=== PATIENT | female | born 1965 | race Caucasian/White ===

== ENCOUNTER → 2021-05-01 10:46 | Outpatient (POV) | payer MEDICARE, SELFPAY ==
[2021-05-01 11:29] VITALS: BP 136/105; PULSE 125; RESP 18; O2SAT 96; BMI 27.3
--- NOTE | 2021-05-02 07:32 | [facility].PMCON ---
Assessment and Plan (1) Degenerative joint disease (DJD) of lumbar spine Status: Chronic Category: Medical Code(s): M47.816 - Spondylosis without myelopathy or radiculopathy, lumbar region (2) Lumbar radiculopathy Status: Chronic Category: Medical Code(s): M54.16 - Radiculopathy, lumbar region - Assessment and plan all Dx Assessment and Plan for all problems:: We will schedule the patient for a lumbar epidural steroid injection at L4-L5. She is not on any anticoagulation therapy. She has tried and failed conservative therapies of physical therapy in the past along with continued home stretching. We will increase the patient's tramadol to 50 mg 2 tablets p.o. twice daily. We will also start her on tizanidine 4 mg 1 tablet p.o. twice daily as needed muscle spasms for 1 month only. Patient says she has tried tizanidine in the past which is given her relief. We will give her the medication until she is able to have her injection. We will not continue with larry Ramos after her injection. She does feel she is having spasms in her low back area. Her pain is radicular in nature into the right hip and right knee. Ice and heat therapies have not been beneficial for the pain. She will continue with anti-inflammatories along with her prescribed medications. We will see her back in the clinic after her injection for reevaluation of symptoms. Risks and benefits of the medication have been explained in detail to the patient. The patient has been advised to consult with his/her primary care provider and pharmacist regarding drug-drug interaction of medications currently prescribed. Risks and benefits of the procedure have been explained to the patient. Patient would like to proceed with the procedure. Possible side effects of corticosteroids have been discussed with the patient. Patient has been instructed to contact the clinic with any concerns before the next appointment. Dr. Anguiano has reviewed this note and agrees with this plan of care. This note was dictated using voice recognition software and make contain errors or omissions. Patient has been prescribed a controlled substance after being counseled on the medication, medication safety, and possible side effects. EVE report has been obtained and reviewed prior to prescription and found to be appropriate. Opioid contract was reviewed and signed by the patient, and that they have agreed to all of the terms set forth by our compliance program. HPI - Data of Consult Patient: new to practice Consult date: 05/01/21 Requesting Physician: Geovanna Gipson APRN Primary Care Provider: Curtis Porter - Consult Narrative Reason for consult: Low back pain, right hip pain History of present illness: Ms. Lew is a 55 year old female who presents today for consultation for chronic low back pain and right hip pain. Patient was referred to us by Dr. Porter. Patient says that she is having severe low back pain that is radicular to her right hip and right knee.. This pain has been ongoing for greater than 6 months. She denies any trauma or injury. She denies any saddle anesthesia or changes in bowel or bladder habit. Patient says that she is having difficulty sitting, standing, sleeping. She says that she is unable to lie down due to the pain. The pain is constant. She also has difficulty bending. She says that she has previously tried physical therapy for greater than 6 weeks, continues with home stretching, and has tried anti-inflammatories in the past. She does not get any significant relief. She is currently on tramadol 50 mg 1 tablet p.o. twice daily and gabapentin 600 mg 1 tablet p.o. 3 times daily. She denies any side effects to these medications. We did discuss increasing the medication to see if this helps. She is also previously taken muscle relaxers that have given her relief. We discussed adding on a muscle relaxer that she can take as needed. She has been advised agains
--- NOTE | 2021-05-22 11:18 | PC.NURSE ---
Left voicemail notifying patient injection is pending with insurance and the date and time of reschedule.
== END ==
PROVIDERS: PCP Family Medicine; Visit Provider Clinical Nurse Specialist Family Health
DX: M47.896 Other spondylosis, lumbar region (principal); M54.16 Radiculopathy, lumbar region
CPT/HCPCS: 99202; G0463

== ENCOUNTER → 2021-05-14 13:14 | Outpatient (CLI) | payer MEDICARE, SELFPAY ==
--- NOTE | 2021-05-14 13:26 | MR_ITS ---
PROCEDURE: MR LUMBAR SPINE WO CON CLINICAL INDICATION: BACK PAIN Low back pain and right hip and leg pain COMPARISON: No exams were available for comparison TECHNIQUE: Standard multiplanar multiecho sequences are performed without contrast. 3-D MIP and myelographic images are also rendered and reviewed FINDINGS: Normal alignment. Spinal cord ends at the L1 level. L1-L2, L2-L3, and L3-L4 have an unremarkable appearance. There is borderline narrowing of the canal at L3-L4 with mild facet and ligamentum hypertrophic change. L4-5 has an unremarkable appearance. No disc herniation or other significant anomalies. No fracture or dislocation. IMPRESSION: Borderline narrowing of the canal at L3-L4 with mild facet and ligamentum hypertrophic change No extruded herniated disc or other significant anomaly Dictated by: Pacheco Garcia MD 05/14/2021 16:39 Pacheco Garcia MD in [facility] 05/14/2021 16:39
== END ==
PROVIDERS: PCP Family Medicine; Visit Provider Clinical Nurse Specialist Family Health
DX: M54.5 Low back pain (principal)
CPT/HCPCS: 72148; 76376